=== PATIENT | female | born 1950 | race Caucasian/White ===

== ENCOUNTER 2025-06-15 08:00 | Outpatient (RCR) | payer MEDICARE, BC, SELFPAY | END 2025-06-16 23:59 | disposition home or self-care (01) | LOC: GPT 08:00 | PROVIDERS: Visit Provider Orthopaedic Surgery | DX: M17.12 Unilateral primary osteoarthritis, left knee (principal) | CPT/HCPCS: 97110; 97161; 97530 ==

== ENCOUNTER 2025-07-11 08:55 | Outpatient (RCR) | payer MEDICARE, BC, SELFPAY | END 2025-07-16 23:59 | disposition home or self-care (01) | LOC: GPT 08:55 | PROVIDERS: Visit Provider Orthopaedic Surgery | DX: M17.12 Unilateral primary osteoarthritis, left knee (principal) | CPT/HCPCS: 97110; 97112; 97140; 97530 ==

== ENCOUNTER 2025-07-25 08:56 | Outpatient (RCR) | payer MEDICARE, BC, SELFPAY | END 2025-08-16 23:59 | disposition home or self-care (01) | LOC: GPT 08:56 | PROVIDERS: Visit Provider Orthopaedic Surgery | DX: M17.12 Unilateral primary osteoarthritis, left knee (principal) | CPT/HCPCS: 97110; 97112 ==